=== PATIENT | female | born 1930 ===

== ENCOUNTER 2018-07-01 09:35 | Outpatient (CLI) | payer OTHER ==
[~2018-07-01] VITALS: Ht 152.4 cm; Wt 58.1 kg
[2018-07-01] MEDS ORDERED: FLONASE16 GM NASAL (13:53)
[2018-07-01] MEDS ORDERED: CLARITIN10 MG PO (13:53)
== END 2018-07-01 09:45 | disposition home or self-care (01) ==
LOC: OFIC 805 09:35
DX: J31.0 Chronic rhinitis (principal); R05 Cough; R49.8 Other voice and resonance disorders